=== PATIENT | female | born 1945 | race Asian ===

== ENCOUNTER → 2016-06-27 | Outpatient (CLI) | payer MEDICARE, OTHER ==
--- NOTE | 2016-06-28 07:53 | RADIOLOGY REPORT ---
STRESS TEST REPORT PATIENT NAME: [facility]O [facility]#: [id number] ROOM#: DATE OF SERVICE: 06/27/16 AGE: 71Y ORDER#: [id number] REFERRING MD: ELENITA FOSTER M.D. INDICATION: Assessment of atypical chest pains, chest pain in the right lower lobe lateral chest. PROCEDURE PERFORMED REST/STRESS SINGLE ISOTOPE CARDIOLITE SPECT IMAGING WITH EXERCISE STRESS AND GATED SPECT IMAGING CLINICAL HISTORY This is a 71 year old [place] female with no known coronary artery disease has cardiac risk factors of hypertension, hypercholesterolemia. Current symptomatology includes atypical right lower lobe chest pains. PROCEDURE The patient was exercised on the treadmill using a modified Giuseppe protocol modified after the third minute completing 3.5 minutes with an estimated workload of less than 4 METS. The resting heart rate was 72 bpm and increased to 162 bpm, which was greater than 100% of maximum predicted heart rate. The BP response was normal. Resting BP was 148/86 and increased to 192/73. The patient did not develop any symptoms other then fatigue and inability to keep up with the treadmill. Specifically she did not complain of any right lower lobe chest pains. Resting 12 lead EKG showed normal sinus rhythm, old anteroseptal MT. At peak exercise, 1.[address] depression was seen in the inferolateral leads lasting one minute post-exercise. Myocardial perfusion imaging was performed at rest 60 minutes following injection of 10.96 mCi Cardiolite. At peak exercise, the patient was injected with 30.8 mCi Cardiolite and exercise continued for one more minute. Gated post stress tomographic imaging was performed 60 minutes after stress. FINDINGS The overall quality of the study is good. The left ventricular cavity is noted to be normal in size on both the rest and stress studies. There is no evidence of abnormal transient ischemic dilatation of the left ventricle. The TID ratio was 1.09. SPECT images showed no evidence of exercise induced reversible ischemic defect and no fixed perfusion defect. The gated SPECT imaging showed normal motion contraction of all LV segments. The left ventricular ejection fraction was calculated to be 59%. SUMMARY OF FINDINGS/IMPRESSION: 1. MYOCARDIAL PERFUSION IMAGING IS NORMAL. 2. THERE IS NO EVIDENCE OF ABNORMAL REVERSIBLE ISCHEMIC DEFECT OR FIXED PERFUSION DEFECT IN THE LEFT VENTRICLE. OVERALL, 3. LEFT VENTRICULAR SYSTOLIC FUNCTION WAS NORMAL WITH 4. NO REGIONAL WALL MOTION ABNORMALITIES. 5. NO PRIOR STUDY FOR COMPARISON. INTERPRETING PHYSICIAN: OBYD BOTELLO M.D. /: BETSY TT: 0744 ID: [id number] /: [id number] TD: [id number] JOB: [id number] cc:Cale ORNELAS M.D. > MTDD
== END ==
LOC: RAD 06:47
PROVIDERS: ATTEND Family Medicine
DX: R07.2 Precordial pain (principal)
CPT/HCPCS: 93017; 78452; A9500; Q9969